=== PATIENT | male | born 1940 | race Asian ===

== ENCOUNTER → 2016-11-01 | Outpatient (CLI) | payer OTHER ==
[~2016-11-01] MED LIST: AMLO10TA55 PO; ASPI-1132 PO; BENA40TA3 PO; EZET1TAB9 PO; FAMO20 PO; GLIM2 PO; ISOS10TA2 PO; METF500T4 PO; NITR0.4T27 SL; OSCAL PO; PANT40SU PO; PANT40TA25 PO; VALS80TA2 PO
== END | disposition home or self-care (01) ==
LOC: RADPV 09:10
PROVIDERS: ATTEND Internal Medicine
DX: I65.23 Occlusion and stenosis of bilateral carotid arteries (principal)
CPT/HCPCS: 93880

== ENCOUNTER 2016-11-08 20:34 | Emergency (ER) | payer OTHER ==
[~2016-11-08] VITALS: Ht 160 cm; Wt 59.0 kg
[2016-11-08 20:53] VITALS: BP 195/92
[2016-11-08] MEDS ORDERED: LEVO75 PO (20:57)
[2016-11-08] MEDS ORDERED: INSULIN SQ (20:57)
[2016-11-08] MEDS ORDERED: AMLO1TAB12 PO (20:57)
[2016-11-08 20:58] LABS: GLUCOSE,POINT OF CARE 103 MG/DL (70-110)
[2016-11-08] MEDS ORDERED: MORPHINE SULFATE 4 MG/ML SYRINGE IM ONE (22:00)
[2016-11-08] MEDS ORDERED: ONDANSETRON HCL 4 MG/2 ML VIAL IM ONE (22:00)
== END 2016-11-08 22:15 | disposition home or self-care (01) ==
LOC: EMS 20:41
DX: S61.432A Puncture wound without foreign body of left hand, initial encounter (principal); E11.9 Type 2 diabetes mellitus without complications; I10 Essential (primary) hypertension; E03.9 Hypothyroidism, unspecified; F17.210 Nicotine dependence, cigarettes, uncomplicated; W56.81XA Bitten by other nonvenomous marine animals, initial encounter; Y93.89 Activity, other specified; Y92.89 Other specified places as the place of occurrence of the external cause; Y99.8 Other external cause status
CPT/HCPCS: 82962; 96372; 99284; J2270; J2405

== ENCOUNTER → 2016-12-04 | Outpatient (CLI) | payer OTHER ==
[~2016-12-04] MED LIST changes: -AMLO10TA55 PO; +AMLO1TAB12 PO; -ASPI-1132 PO; -BENA40TA3 PO; -EZET1TAB9 PO; -FAMO20 PO; -GLIM2 PO; +INSULIN SQ; +LEVO75 PO; -NITR0.4T27 SL; -OSCAL PO; -PANT40SU PO; -PANT40TA25 PO; -VALS80TA2 PO
== END | disposition home or self-care (01) ==
LOC: RADPV 10:12
PROVIDERS: ATTEND Internal Medicine
DX: J42 Unspecified chronic bronchitis (principal); J98.11 Atelectasis
CPT/HCPCS: 71020

== ENCOUNTER 2017-02-27 22:44 | Inpatient (IN) | payer OTHER ==
[~2017-02-27] VITALS: Ht 157.5 cm; Wt 59.1 kg
[2017-02-27 22:57] LABS: GLUCOSE,POINT OF CARE 126 MG/DL (70-110)
[2017-02-27 23:27] LABS: BASOPHILS % (AUTO) 0.2 % (0.0-2.0); EOSINOPHILS % (AUTO) 1.6 % (1.0-6.0); HEMATOCRIT 34.1 % (41-53); HEMOGLOBIN 11.8 g/dL (13.5-17.5); LYMPHOCYTES # (AUTO) 1.7 K/uL (1.0-4.8); LYMPHOCYTES % (AUTO) 22.9 % (22.0-44.0); MEAN CORPUSCULAR HEMOGLOBIN 30.1 pg (26.0-34.0); MEAN CORPUSCULAR HGB CONC 34.5 G/dL (31.0-37.0); MEAN CORPUSCULAR VOLUME 87 fL (80-100); MONOCYTES # (AUTO) 0.6 K/uL (0.1-1.0); MONOCYTES % (AUTO) 8.6 % (2.0-9.0); NEUTROPHILS # (AUTO) 4.9 K/uL (1.8-7.7); NEUTROPHILS % (AUTO) 66.7 % (40.0-70.0); PLATELET COUNT (AUTO) 208 K/uL (150-450); RED BLOOD CELL COUNT(AUTO) 3.92 MIL/uL (4.50-5.90); WHITE BLOOD COUNT (AUTO) 7.3 K/uL (4.5-11.0)
[2017-02-27 23:36] LABS: PROTHROMBIN TIME 10.3 SEC (9.4-11.6)
[2017-02-27 23:42] LABS: ANION GAP 11 mmol/L (8-16); CALCIUM, TOTAL 9.2 mg/dL (8.8-10.5); CARBON DIOXIDE 25 mmol/L (22-29); CHLORIDE 106 mmol/L (98-107); CREATININE 1.71 mg/dL (0.60-1.30); GLOMERULAR FILTR. RATE CALC 39 mL/min (>60); POTASSIUM 3.9 mmol/L (3.5-5.1); SODIUM SERUM 142 mmol/L (136-145); UREA NITROGEN, BLOOD 20 mg/dL (7-18)
[2017-02-27] MEDS ORDERED: ASPIRIN 325 MG TABLET PO ONE (23:45)
[2017-02-27 23:48] LABS: ALANINE AMINOTRANSFERASE 20 U/L (12-78); ALBUMIN 3.6 g/dL (3.4-5.0); ASPARTATE AMINOTRANSFERASE 26 U/L (15-37); BILIRUBIN,TOTAL 0.2 mg/dL (0.1-1.0); TOTAL PROTEIN, SERUM 7.4 g/dL (6.4-8.2)
[2017-02-28] VITALS (7 sets, daily range): BP systolic 118–156; BP diastolic 62–76
[2017-02-28] MEDS ORDERED: ONDANSETRON HCL 4 MG/2 ML VIAL IVP PRN ×2 (00:15→01:45)
[2017-02-28] MEDS ORDERED: POTASSIUM CHL 20 MEQ/0.45% NS 1,000 ML IV ONE (00:15)
[2017-02-28] MEDS ORDERED: 0.9% SODIUM CHLORIDE 10 ML SYRINGE IVP PRN (00:15)
[2017-02-28] MEDS ORDERED: ACETAMINOPHEN 325 MG TABLET PO PRN ×2 (00:15→01:45)
[2017-02-28 00:43] LABS: B-TYPE NATRIURETIC PEPTIDE 43 pg/mL (0-100)
[2017-02-28] MEDS ORDERED: ALBUTEROL SULFATE 2.5 MG/0.5 ML NEB SOLUTION NEB PRN (01:45)
[2017-02-28] MEDS ORDERED: POTASSIUM CHL 10 MEQ/WATER 50 ML IV PRN (01:45)
[2017-02-28] MEDS ORDERED: IPRATROPIUM BROMIDE 0.5 MG/2.5 ML NEB SOLUTION NEB PRN (01:45)
[2017-02-28] MEDS ORDERED: ZOLPIDEM TARTRATE 5 MG TABLET PO PRN (01:45)
[2017-02-28] MEDS ORDERED: MAGNESIUM SULFATE 4 GM/WATER 100 ML IV PRN (01:45)
[2017-02-28] MEDS ORDERED: BISACODYL 10 MG RECTAL RECTAL SUPPOSITORY PR PRN (01:45)
[2017-02-28] MEDS ORDERED: POTASSIUM CHLORIDE 20 MEQ ER TABLET PO PRN ×2 (01:45)
[2017-02-28] MEDS ORDERED: MAGNESIUM HYDROXIDE SUSPENSION 30 ML UDCUP PO PRN (01:45)
[2017-02-28] MEDS ORDERED: MAGNESIUM SULFATE 2 GM in DEXTROSE 5%-WATER 50 ML IV PRN (01:45)
[2017-02-28] MEDS ORDERED: MORPHINE SULFATE 2 MG/ML SYRINGE IVP PRN (01:45)
[2017-02-28] MEDS ORDERED: MAGNESIUM OXIDE 400 MG TABLET PO PRN (01:45)
[2017-02-28] MEDS ORDERED: DEXTROSE 50%-WATER 25 GM/50 ML SYRINGE IVP PRN (01:45)
[2017-02-28] MEDS ORDERED: OxyCODONE HCL/ACETAMINOPHEN 5-325 MG TABLET PO PRN (01:45)
[2017-02-28 05:28] LABS: APPEARANCE,URINE CLEAR (CLEAR); GLUCOSE, URINE (UA) NEGATIVE (NEGATIVE); KETONES,URINE NEGATIVE (NEGATIVE); LEUKOCYTE ESTERASE ,URINE NEGATIVE (NEGATIVE); OCCULT BLOOD,URINE NEGATIVE (NEGATIVE); PH,URINE 5.5 (5.0-8.0); PROTEIN,URINE POS 1+ (NEGATIVE)
[2017-02-28 05:59] LABS: RBC,URINE 0-2 /HPF (0-2); SQUAMOUS EPITHELIAL CELL,UR Few /LPF (None Seen); WBC,URINE 0-2 /HPF (0-5)
[2017-02-28] MEDS: LEVOTHYROXINE SODIUM 75 MCG TABLET PO SCH (06:18)
[2017-02-28] MEDS ORDERED: MetFORMIN HCL 500 MG TABLET PO SCH (06:30)
[2017-02-28 07:32] LABS: GLUCOSE,POINT OF CARE 83 MG/DL (70-110)
[2017-02-28] MEDS: HEPARIN SODIUM,PORCINE 5,000 UNITS/ML VIAL SQ SCH ×2 (08:38→20:22)
[2017-02-28] MEDS: PANTOPRAZOLE SODIUM 40 MG/VIAL IVP SCH (08:38)
[2017-02-28] MEDS: VALSARTAN 160 MG TABLET PO SCH (08:38)
[2017-02-28] MEDS: NICOTINE 21 MG/24 HOUR PATCH TD SCH (08:39)
[2017-02-28] MEDS: ASPIRIN 81 MG EC TABLET PO SCH (08:39)
[2017-02-28] MEDS: AmLODIPine BESYLATE 5 MG TABLET PO SCH (12:07)
[2017-02-28 16:37] LABS: GLUCOSE,POINT OF CARE 99 MG/DL (70-110)
[2017-02-28] MEDS: INSULIN ASPART 100 UNITS/ML SQ PRN (20:30)
[2017-03-01 05:16] VITALS: BP 157/72
[2017-03-01] MEDS: LEVOTHYROXINE SODIUM 75 MCG TABLET PO SCH (05:42)
[2017-03-01 06:22] LABS: GLUCOSE COMMENT 1 Received Meds; GLUCOSE,POINT OF CARE 152 MG/DL (70-110)
[2017-03-01 06:58] LABS: BASOPHILS % (AUTO) 0.1 % (0.0-2.0); EOSINOPHILS % (AUTO) 1.24 % (1.0-6.0); HEMATOCRIT 35.8 % (41-53); HEMOGLOBIN 12.6 g/dL (13.5-17.5); LYMPHOCYTES # (AUTO) 1.1 K/uL (1.0-4.8); LYMPHOCYTES % (AUTO) 13.8 % (22.0-44.0); MEAN CORPUSCULAR HEMOGLOBIN 29.8 pg (26.0-34.0); MEAN CORPUSCULAR HGB CONC 35.2 G/dL (31.0-37.0); MEAN CORPUSCULAR VOLUME 85 fL (80-100); MONOCYTES # (AUTO) 0.5 K/uL (0.1-1.0); MONOCYTES % (AUTO) 7.1 % (2.0-9.0); NEUTROPHILS % (AUTO) 77.8 % (40.0-70.0); PLATELET COUNT (AUTO) 203 K/uL (150-450); RED BLOOD CELL COUNT(AUTO) 4.23 MIL/uL (4.50-5.90); RED CELL DISTRIBUTION WIDTH 13.5 % (11.5-14.5); WHITE BLOOD COUNT (AUTO) 7.7 K/uL (4.5-11.0)
[2017-03-01 07:06] VITALS: BP 149/68
[2017-03-01 07:09] LABS: PROTHROMBIN TIME 10.7 SEC (9.4-11.6)
[2017-03-01 07:33] LABS: ALBUMIN 3.4 g/dL (3.4-5.0); BILIRUBIN,TOTAL 0.3 mg/dL (0.1-1.0); CREATININE 1.21 mg/dL (0.60-1.30); MAGNESIUM 1.4 mg/dL (1.80-2.40); PHOSPHORUS 3.8 mg/dL (2.5-4.9); TOTAL PROTEIN, SERUM 7.2 g/dL (6.4-8.2)
[2017-03-01] MEDS: PANTOPRAZOLE SODIUM 40 MG/VIAL IVP SCH (08:19)
[2017-03-01] MEDS: VALSARTAN 160 MG TABLET PO SCH (08:20)
[2017-03-01] MEDS: HEPARIN SODIUM,PORCINE 5,000 UNITS/ML VIAL SQ SCH ×2 (08:20→21:10)
[2017-03-01] MEDS: ASPIRIN 81 MG EC TABLET PO SCH (08:20)
[2017-03-01] MEDS: AmLODIPine BESYLATE 5 MG TABLET PO SCH (08:20)
[2017-03-01] MEDS: NICOTINE 21 MG/24 HOUR PATCH TD SCH (08:22)
[2017-03-01 11:52] LABS: GLUCOSE COMMENT 1 Received Meds; GLUCOSE,POINT OF CARE 202 MG/DL (70-110)
[2017-03-01 11:52] LABS: GLUCOSE,POINT OF CARE 114 MG/DL (70-110)
[2017-03-01 11:58] VITALS: BP 155/65
[2017-03-01] MEDS: INSULIN ASPART 100 UNITS/ML SQ PRN ×3 (11:58→21:12)
[2017-03-01 15:22] VITALS: BP 160/70
[2017-03-01 19:17] VITALS: BP 149/77
[2017-03-01 20:02] LABS: GLUCOSE COMMENT 1 Received Meds; GLUCOSE,POINT OF CARE 159 MG/DL (70-110)
[2017-03-01 20:02] LABS: GLUCOSE COMMENT 1 Received Meds; GLUCOSE,POINT OF CARE 248 MG/DL (70-110)
[2017-03-01 21:02] LABS: GLUCOSE,POINT OF CARE 232 MG/DL (70-110)
[2017-03-02] VITALS: BP 151/75
[2017-03-02 04:40] VITALS: BP 146/88
[2017-03-02 07:24] LABS: CHOL/HDL RATIO 3.4 (4.2-7.3); MAGNESIUM 1.9 mg/dL (1.80-2.40); THYROID STIMULATING HORMONE 5.69 uIU/mL (0.36-3.74)
[2017-03-02] MEDS: LEVOTHYROXINE SODIUM 75 MCG TABLET PO SCH (07:41)
[2017-03-02 07:45] VITALS: BP 158/77
[2017-03-02] MEDS: NICOTINE 21 MG/24 HOUR PATCH TD SCH (08:29)
[2017-03-02] MEDS: HEPARIN SODIUM,PORCINE 5,000 UNITS/ML VIAL SQ SCH (08:31)
[2017-03-02] MEDS: AmLODIPine BESYLATE 5 MG TABLET PO SCH (08:31)
[2017-03-02] MEDS: ASPIRIN 81 MG EC TABLET PO SCH (08:31)
[2017-03-02] MEDS: VALSARTAN 160 MG TABLET PO SCH (08:31)
[2017-03-02 12:00] VITALS: BP 153/87
[2017-03-02] MEDS: INSULIN ASPART 100 UNITS/ML SQ PRN (12:38)
[2017-03-02] MEDS: PANTOPRAZOLE SODIUM 40 MG/VIAL IVP SCH (13:39)
[2017-03-02] MEDS ORDERED: ASPI-1182 PO (13:45)
[2017-03-02] MEDS ORDERED: ATOR10TA84 PO (13:46)
[2017-03-02] MEDS ORDERED: NICO-802 TD (13:47)
[2017-03-03 08:57] LABS: GLUCOSE COMMENT 1 Received Meds; GLUCOSE,POINT OF CARE 174 MG/DL (70-110)
[2017-03-03 08:57] LABS: GLUCOSE COMMENT 1 Received Meds; GLUCOSE,POINT OF CARE 159 MG/DL (70-110)
== END 2017-03-02 14:20 | disposition home or self-care (01) | DRG 65 ==
LOC: EMS 22:46 → 5S 02-28 00:13
PROVIDERS: ADMIT Internal Medicine; ATTEND Internal Medicine
DX: I63.9 Cerebral infarction, unspecified (principal); N17.9 Acute kidney failure, unspecified; J44.9 Chronic obstructive pulmonary disease, unspecified; E11.9 Type 2 diabetes mellitus without complications; G81.91 Hemiplegia, unspecified affecting right dominant side; E03.9 Hypothyroidism, unspecified; I10 Essential (primary) hypertension; F17.200 Nicotine dependence, unspecified, uncomplicated
CPT/HCPCS: 70450; 70544; 70551; 82607; 82746; 82962; 83036; 83735; 84100; 84443; 92507; 92523; 93005; 93306; 93880; 97110; 97112; 97116; 97162; 97166; 97530; 97535; 99291; C9113; G0480; J1644; J3475; J3480; J7060

== ENCOUNTER 2017-03-05 18:12 | Inpatient (IN) | payer OTHER ==
[~2017-03-05] VITALS: Ht 165.1 cm; Wt 62.0 kg
[~2017-03-05 18:12] MED LIST changes: +ASPI-1182 PO; +ATOR10TA84 PO; +NICO-802 TD
[2017-03-05] MEDS ORDERED: HYDR10TA31 PO (18:20)
[2017-03-05] MEDS ORDERED: TEMO15C TP (18:20)
[2017-03-05] MEDS ORDERED: LINA5TAB PO (18:20)
[2017-03-05] MEDS ORDERED: DSS100 PO (18:20)
[2017-03-05] MEDS ORDERED: PANT40TA25 PO (18:20)
[2017-03-05] MEDS ORDERED: GLIP5 PO (18:20)
[2017-03-05 18:29] LABS: BASOPHILS % (AUTO) 0.4 % (0.0-2.0); HEMATOCRIT 36.7 % (41-53); HEMOGLOBIN 12.7 g/dL (13.5-17.5); LYMPHOCYTES # (AUTO) 1.8 K/uL (1.0-4.8); LYMPHOCYTES % (AUTO) 21.5 % (22.0-44.0); MEAN CORPUSCULAR HEMOGLOBIN 30.4 pg (26.0-34.0); MEAN CORPUSCULAR HGB CONC 34.6 G/dL (31.0-37.0); MEAN CORPUSCULAR VOLUME 88 fL (80-100); MONOCYTES # (AUTO) 0.7 K/uL (0.1-1.0); MONOCYTES % (AUTO) 8.5 % (2.0-9.0); NEUTROPHILS # (AUTO) 5.7 K/uL (1.8-7.7); NEUTROPHILS % (AUTO) 68.6 % (40.0-70.0); PLATELET COUNT (AUTO) 234 K/uL (150-450); RED BLOOD CELL COUNT(AUTO) 4.19 MIL/uL (4.50-5.90); RED CELL DISTRIBUTION WIDTH 13.7 % (11.5-14.5); WHITE BLOOD COUNT (AUTO) 8.3 K/uL (4.5-11.0)
[2017-03-05 18:31] LABS: ANION GAP 9 mmol/L (8-16); CALCIUM, TOTAL 9.5 mg/dL (8.8-10.5); CARBON DIOXIDE 28 mmol/L (22-29); CHLORIDE 103 mmol/L (98-107); CREATININE 1.94 mg/dL (0.60-1.30); GLOMERULAR FILTR. RATE CALC 34 mL/min (>60); POTASSIUM 4.9 mmol/L (3.5-5.1); SODIUM SERUM 140 mmol/L (136-145); UREA NITROGEN, BLOOD 36 mg/dL (7-18)
[2017-03-05] MEDS ORDERED: IOVERSOL 350 MG/ML 100 ML VIAL ONE (18:31)
[2017-03-05] MEDS ORDERED: SODIUM CHLORIDE 0.9% 100 ML ONE (18:31)
[2017-03-05 18:37] LABS: INR 0.9 (0.9-1.1)
[2017-03-05 18:57] LABS: ALANINE AMINOTRANSFERASE 73 U/L (12-78); ALBUMIN 3.8 g/dL (3.4-5.0); ASPARTATE AMINOTRANSFERASE 34 U/L (15-37); BILIRUBIN,TOTAL 0.2 mg/dL (0.1-1.0); CREATINE KINASE, TOTAL 82 U/L (39-308); TOTAL PROTEIN, SERUM 7.7 g/dL (6.4-8.2)
[2017-03-05] MEDS ORDERED: AMLO-352 PO (19:24)
[2017-03-05] MEDS ORDERED: CALC-719 PO (19:24)
[2017-03-05] MEDS ORDERED: ASPIRIN 325 MG TABLET PO ONE (19:45)
[2017-03-05] MEDS ORDERED: ACETAMINOPHEN 325 MG TABLET PO PRN (20:00)
[2017-03-05] MEDS ORDERED: SODIUM CHLORIDE 0.9% 1,000 ML IV ONE (20:00)
[2017-03-05] MEDS ORDERED: ONDANSETRON HCL 4 MG/2 ML VIAL IVP PRN (20:00)
[2017-03-05] MEDS ORDERED: 0.9% SODIUM CHLORIDE 10 ML SYRINGE IVP PRN ×2 (20:00→22:15)
[2017-03-05 20:54] LABS: APPEARANCE,URINE CLEAR (CLEAR); GLUCOSE, URINE (UA) NEGATIVE (NEGATIVE); KETONES,URINE NEGATIVE (NEGATIVE); LEUKOCYTE ESTERASE ,URINE NEGATIVE (NEGATIVE); OCCULT BLOOD,URINE TRACE (NEGATIVE); PH,URINE 5.5 (5.0-8.0); PROTEIN,URINE POS 1+ (NEGATIVE)
[2017-03-05 20:57] LABS: ADD UA MICROSCOPIC YES
[2017-03-05 21:12] LABS: WBC,URINE 0-2 /HPF (0-5)
[2017-03-05] MEDS ORDERED: DEXTROSE 50%-WATER 25 GM/50 ML SYRINGE IVP PRN (22:15)
[2017-03-05] MEDS: AmLODIPine BESYLATE 10 MG TABLET PO SCH (22:43)
[2017-03-06] VITALS (8 sets, daily range): BP systolic 107–162; BP diastolic 57–74
[2017-03-06] MEDS: HYDROCHLOROTHIAZIDE 25 MG TABLET PO SCH ×2 (00:04→19:58)
[2017-03-06 00:17] LABS: GLUCOSE,POINT OF CARE 117 MG/DL (70-110)
[2017-03-06] MEDS: VALSARTAN 160 MG TABLET PO SCH ×2 (02:29→19:58)
[2017-03-06] MEDS ORDERED: SODIUM CHLORIDE 0.9% 250 ML IV ONE (03:39)
[2017-03-06 05:19] LABS: BASOPHILS % (AUTO) 0.4 % (0.0-2.0); EOSINOPHILS % (AUTO) 1.4 % (1.0-6.0); HEMATOCRIT 33.7 % (41-53); HEMOGLOBIN 11.5 g/dL (13.5-17.5); LYMPHOCYTES # (AUTO) 1.6 K/uL (1.0-4.8); LYMPHOCYTES % (AUTO) 26.4 % (22.0-44.0); MEAN CORPUSCULAR HEMOGLOBIN 30.3 pg (26.0-34.0); MEAN CORPUSCULAR HGB CONC 34.2 G/dL (31.0-37.0); MEAN CORPUSCULAR VOLUME 89 fL (80-100); MONOCYTES # (AUTO) 0.6 K/uL (0.1-1.0); MONOCYTES % (AUTO) 9.5 % (2.0-9.0); NEUTROPHILS # (AUTO) 3.9 K/uL (1.8-7.7); NEUTROPHILS % (AUTO) 62.3 % (40.0-70.0); PLATELET COUNT (AUTO) 205 K/uL (150-450); RED BLOOD CELL COUNT(AUTO) 3.81 MIL/uL (4.50-5.90); RED CELL DISTRIBUTION WIDTH 13.7 % (11.5-14.5); WHITE BLOOD COUNT (AUTO) 6.2 K/uL (4.5-11.0)
[2017-03-06 05:31] LABS: CALCIUM, TOTAL 8.5 mg/dL (8.8-10.5); CREATININE 1.56 mg/dL (0.60-1.30); MAGNESIUM 1.9 mg/dL (1.80-2.40); POTASSIUM 4.2 mmol/L (3.5-5.1)
[2017-03-06 06:16] LABS: HEMOGLOBIN A1C 7.3 % (4.5-6.2)
[2017-03-06 08:02] LABS: GLUCOSE,POINT OF CARE 126 MG/DL (70-110)
[2017-03-06] MEDS: MetFORMIN HCL 500 MG TABLET PO SCH ×2 (09:37→18:21)
[2017-03-06] MEDS: ASPIRIN 81 MG EC TABLET PO SCH (09:37)
[2017-03-06] MEDS: HydrALAZINE HCL 10 MG TABLET PO SCH (09:37)
[2017-03-06] MEDS: CLOBETASOL 0.05% 15 GM CREAM TP SCH (09:38)
[2017-03-06] MEDS: ATORVASTATIN CALCIUM 40 MG TABLET PO SCH (09:38)
[2017-03-06] MEDS: CALCIUM OYSTER SHELL 500 MG TABLET PO SCH (09:38)
[2017-03-06] MEDS: ISOSORBIDE MONONITRATE 30 MG ER TABLET PO SCH (09:38)
[2017-03-06] MEDS: PANTOPRAZOLE SODIUM 40 MG DR TABLET PO SCH (09:39)
[2017-03-06] MEDS: NICOTINE 21 MG/24 HOUR PATCH TD SCH (11:33)
[2017-03-06] MEDS: INSULIN ASPART 100 UNITS/ML SQ PRN (11:43)
[2017-03-06 14:13] LABS: GLUCOSE,POINT OF CARE 198 MG/DL (70-110)
[2017-03-06] MEDS ORDERED: ACETAMINOPHEN 325 MG TABLET PO PRN (17:00)
[2017-03-06] MEDS: AmLODIPine BESYLATE 10 MG TABLET PO SCH (19:58)
[2017-03-06] MEDS ORDERED: [UNRECOGNIZED DRUG - OTHER] PO SCH (21:00)
[2017-03-07 04:34] VITALS: BP 153/73
[2017-03-07 06:38] LABS: BASOPHILS % (AUTO) 0.4 % (0.0-2.0); EOSINOPHILS % (AUTO) 1.5 % (1.0-6.0); HEMATOCRIT 32.8 % (41-53); HEMOGLOBIN 11.3 g/dL (13.5-17.5); LYMPHOCYTES # (AUTO) 1.6 K/uL (1.0-4.8); LYMPHOCYTES % (AUTO) 22.1 % (22.0-44.0); MEAN CORPUSCULAR HEMOGLOBIN 30.3 pg (26.0-34.0); MEAN CORPUSCULAR HGB CONC 34.3 G/dL (31.0-37.0); MEAN CORPUSCULAR VOLUME 88 fL (80-100); MONOCYTES # (AUTO) 0.6 K/uL (0.1-1.0); MONOCYTES % (AUTO) 7.9 % (2.0-9.0); NEUTROPHILS % (AUTO) 68.1 % (40.0-70.0); PLATELET COUNT (AUTO) 200 K/uL (150-450); RED BLOOD CELL COUNT(AUTO) 3.72 MIL/uL (4.50-5.90); RED CELL DISTRIBUTION WIDTH 13.5 % (11.5-14.5); WHITE BLOOD COUNT (AUTO) 7.4 K/uL (4.5-11.0)
[2017-03-07 06:48] LABS: GLUCOSE,POINT OF CARE 130 MG/DL (70-110)
[2017-03-07 06:48] LABS: GLUCOSE,POINT OF CARE 127 MG/DL (70-110)
[2017-03-07 06:56] LABS: CALCIUM, TOTAL 8.9 mg/dL (8.8-10.5); CREATININE 1.71 mg/dL (0.60-1.30); MAGNESIUM 1.8 mg/dL (1.80-2.40); POTASSIUM 4.4 mmol/L (3.5-5.1)
[2017-03-07 07:12] VITALS: BP 172/79
[2017-03-07] MEDS: HydrALAZINE HCL 10 MG TABLET PO SCH (08:32)
[2017-03-07] MEDS: PANTOPRAZOLE SODIUM 40 MG DR TABLET PO SCH (08:32)
[2017-03-07] MEDS: ASPIRIN 81 MG EC TABLET PO SCH (08:33)
[2017-03-07] MEDS: CALCIUM OYSTER SHELL 500 MG TABLET PO SCH (08:33)
[2017-03-07] MEDS: ATORVASTATIN CALCIUM 40 MG TABLET PO SCH (08:33)
[2017-03-07] MEDS: NICOTINE 21 MG/24 HOUR PATCH TD SCH (08:33)
[2017-03-07] MEDS: MetFORMIN HCL 500 MG TABLET PO SCH (08:33)
[2017-03-07] MEDS: ISOSORBIDE MONONITRATE 30 MG ER TABLET PO SCH (08:33)
[2017-03-07] MEDS: CLOBETASOL 0.05% 15 GM CREAM TP SCH (08:43)
[2017-03-07 11:35] VITALS: BP 144/74
[2017-03-07] MEDS: INSULIN ASPART 100 UNITS/ML SQ PRN (11:43)
[2017-03-07 12:32] LABS: GLUCOSE,POINT OF CARE 125 MG/DL (70-110)
[2017-03-07 12:33] LABS: GLUCOSE,POINT OF CARE 122 MG/DL (70-110)
[2017-03-07] MEDS ORDERED: NICO1PAT40 TD (14:05)
[2017-03-07 15:32] VITALS: BP 137/70
[2017-07-05] MEDS ORDERED: ACET-784 PO (10:28)
[2017-07-06] MEDS ORDERED: ASPI-989 PO (15:38)
[2017-07-06] MEDS ORDERED: ATOR40TA28 PO (15:38)
[2017-07-06] MEDS ORDERED: ISOS30TA6 PO (15:39)
== END 2017-03-07 17:00 | disposition home or self-care (01) | DRG 64 ==
LOC: EMS 18:15 → ICU 19:39 → 5S 03-06 16:35
PROVIDERS: ADMIT Family Medicine; ATTEND Family Medicine
DX: I63.9 Cerebral infarction, unspecified (principal); N17.0 Acute kidney failure with tubular necrosis; E11.9 Type 2 diabetes mellitus without complications; I10 Essential (primary) hypertension; E03.9 Hypothyroidism, unspecified; E78.5 Hyperlipidemia, unspecified; F17.210 Nicotine dependence, cigarettes, uncomplicated; H26.9 Unspecified cataract; M10.9 Gout, unspecified; Z79.82 Long term (current) use of aspirin; Z86.73 Personal history of transient ischemic attack (TIA), and cerebral infarction without residual deficits; I16.0 Hypertensive urgency
CPT/HCPCS: 70496; 70551; 82962; 83036; 83735; 87081; 92526; 92610; 93005; 96360; 97110; 97116; 97162; 97167; 97530; 97535; 99291; J7050

== ENCOUNTER 2017-05-17 01:11 | Emergency (ER) | payer OTHER ==
[~2017-05-17] VITALS: Ht 157.5 cm; Wt 59.1 kg
[~2017-05-17 01:11] MED LIST changes: +AMLO-352 PO; -AMLO1TAB12 PO; +CALC-719 PO; +DSS100 PO; +GLIP5 PO; +HYDR10TA31 PO; -LEVO75 PO; +LINA5TAB PO; -NICO-802 TD; +NICO1PAT40 TD; +PANT40TA25 PO; +TEMO15C TP
[2017-05-17] MEDS ORDERED: KETOROLAC TROMETHAMINE 60 MG/2 ML VIAL IM ONE (02:15)
[2017-05-17] MEDS ORDERED: METOCLOPRAMIDE HCL 5 MG/ML 2 ML VIAL IM ONE (02:15)
[2017-05-17 03:18] VITALS: BP 141/78
[2017-07-05] MEDS ORDERED: ACET-784 PO (10:28)
[2017-07-06] MEDS ORDERED: ATOR40TA28 PO (15:38)
[2017-07-06] MEDS ORDERED: ASPI-989 PO (15:38)
[2017-07-06] MEDS ORDERED: ISOS30TA6 PO (15:39)
== END 2017-05-17 04:09 | disposition home or self-care (01) ==
LOC: EMS 01:12
DX: R51 Headache (principal); E03.9 Hypothyroidism, unspecified; E11.9 Type 2 diabetes mellitus without complications; I10 Essential (primary) hypertension; M10.9 Gout, unspecified; F17.210 Nicotine dependence, cigarettes, uncomplicated; Z79.4 Long term (current) use of insulin; Z79.82 Long term (current) use of aspirin; Z86.73 Personal history of transient ischemic attack (TIA), and cerebral infarction without residual deficits
CPT/HCPCS: 70450; 96372; 99284; J1885; J2765

== ENCOUNTER 2017-07-23 08:08 | Day surgery (SDC) | payer MEDICARE, OTHER ==
[~2017-07-23] VITALS: Ht 157.5 cm; Wt 59.1 kg
[~2017-07-23 08:08] MED LIST changes: +ACET-784 PO; -ASPI-1182 PO; +ASPI-989 PO; -ATOR10TA84 PO; +ATOR40TA28 PO; -ISOS10TA2 PO; +ISOS30TA6 PO; -NICO1PAT40 TD; +SODIUM CHLORIDE 0.9% 1,000 ML IV ONE
[2017-07-23 08:26] LABS: BASOPHILS % (AUTO) 0.5 % (0.0-2.0); EOSINOPHILS % (AUTO) 1.2 % (1.0-6.0); HEMATOCRIT 35.2 % (41-53); LYMPHOCYTES # (AUTO) 1.4 K/uL (1.0-4.8); LYMPHOCYTES % (AUTO) 17.7 % (22.0-44.0); MEAN CORPUSCULAR HGB CONC 34.2 G/dL (31.0-37.0); MEAN CORPUSCULAR VOLUME 88 fL (80-100); MONOCYTES # (AUTO) 0.7 K/uL (0.1-1.0); MONOCYTES % (AUTO) 8.4 % (2.0-9.0); NEUTROPHILS # (AUTO) 5.7 K/uL (1.8-7.7); NEUTROPHILS % (AUTO) 72.2 % (40.0-70.0); PLATELET COUNT (AUTO) 211 K/uL (150-450); RED BLOOD CELL COUNT(AUTO) 4.01 MIL/uL (4.50-5.90); RED CELL DISTRIBUTION WIDTH 13.1 % (11.5-14.5)
[2017-07-23 08:35] LABS: CALCIUM, TOTAL 9.2 mg/dL (8.8-10.5); CREATININE 1.79 mg/dL (0.60-1.30); POTASSIUM 5.6 mmol/L (3.5-5.1)
[2017-07-23 08:36] LABS: INR 0.9 (0.9-1.1); PROTHROMBIN TIME 9.7 SEC (9.4-11.6)
[2017-07-23] MEDS ORDERED: CLOP75 PO (08:36)
[2017-07-23] MEDS ORDERED: BENZOCAINE 20% 50 MCG/SPRAY 57 GM ONE (08:56)
[2017-07-23 09:05] VITALS: BP 154/74
[2017-07-23] MEDS ORDERED: FentaNYL CITRATE-PF 100 MCG/2 ML VIAL ONE (09:26)
[2017-07-23] MEDS ORDERED: MIDAZOLAM HCL 2 MG/2 ML VIAL ONE (09:26)
[2017-07-23 09:45] VITALS: BP 127/63
[2017-07-23] MEDS ORDERED: FentaNYL CITRATE-PF 100 MCG/2 ML VIAL IVP ONE (09:45)
[2017-07-23] MEDS ORDERED: BENZOCAINE 20% 50 MCG/SPRAY 57 GM TP ONE (09:45)
[2017-07-23] MEDS ORDERED: MIDAZOLAM HCL 2 MG/2 ML VIAL IVP ONE (09:45)
== END 2017-07-23 12:25 | disposition home or self-care (01) ==
LOC: CATHLAB 08:08
PROVIDERS: ATTEND Internal Medicine Cardiovascular Disease
DX: I34.0 Nonrheumatic mitral (valve) insufficiency (principal); E11.9 Type 2 diabetes mellitus without complications; I10 Essential (primary) hypertension; E78.5 Hyperlipidemia, unspecified; E03.9 Hypothyroidism, unspecified; Z79.4 Long term (current) use of insulin; Z79.01 Long term (current) use of anticoagulants; Z79.899 Other long term (current) drug therapy; Z72.89 Other problems related to lifestyle
CPT/HCPCS: 36415; 80048; 85025; 85610; 85730; 93312; 99152; 99153; J2250; J3010; J7030

== ENCOUNTER → 2018-10-16 | Outpatient (CLI) | payer MEDICARE, MEDICAID ==
[~2018-10-16] MED LIST changes: -AMLO-352 PO; +AMLO-360 PO; -ASPI-989 PO; +CLOP75TA3 PO; +METF-960 PO; -METF500T4 PO; -SODIUM CHLORIDE 0.9% 1,000 ML IV ONE
== END | disposition home or self-care (01) ==
LOC: RADPV 10:16
PROVIDERS: ATTEND Internal Medicine Nephrology
DX: N28.1 Cyst of kidney, acquired (principal)
CPT/HCPCS: 76770

== ENCOUNTER → 2021-09-09 | Outpatient (CLI) | payer MEDICARE, MEDICAID ==
[~2021-09-09] MED LIST changes: -AMLO-360 PO; +AMLO-430 PO; +CLOB15CR10 TP; -CLOP75TA3 PO; +CLOP75TA60 PO; -ISOS30TA6 PO; +ISOS30TA92 PO; +METF-1211 PO; -METF-960 PO; +PANT-31 PO; -PANT40TA25 PO; +SODIUM CHLORIDE 0.9% 1,000 ML ONE; +SODIUM CHLORIDE 0.9% 500 ML IV ONE; -TEMO15C TP
== END | disposition home or self-care (01) ==
LOC: RADPV 11:37
PROVIDERS: ATTEND Podiatrist Foot & Ankle Surgery
DX: I73.9 Peripheral vascular disease, unspecified (principal); M79.673 Pain in unspecified foot
CPT/HCPCS: 93925; J7030; J7040

== ENCOUNTER 2024-05-08 18:57 | Emergency (ER) | payer SELFPAY ==
[~2024-05-08] VITALS: Ht 154.9 cm; Wt 54.8 kg
[~2024-05-08 18:57] MED LIST changes: -GLIP5 PO; +GLIP5TAB16 PO; -SODIUM CHLORIDE 0.9% 1,000 ML ONE; -SODIUM CHLORIDE 0.9% 500 ML IV ONE
[2024-05-08 19:00] VITALS: TEMP 101
[2024-05-08 19:06] VITALS: BP 197/87; PULSE 107; RESP 20; O2SAT 98
[2024-05-08] MEDS ORDERED: CefTRIAXone 1 GM/DEXTROSE 50 ML IV ONE (19:15)
[2024-05-08] MEDS ORDERED: SODIUM CHLORIDE 0.9% 1,600 ML IV ONE (19:15)
[2024-05-08] MEDS ORDERED: 0.9% SODIUM CHLORIDE 10 ML SYRINGE IVP PRN (19:15)
[2024-05-08] MEDS ORDERED: ATOR20TA65 PO (19:56)
[2024-05-08] MEDS ORDERED: FURO40TA5 PO (19:56)
[2024-05-08] MEDS ORDERED: INSU100I24 SQ (19:56)
[2024-05-08] MEDS ORDERED: FLUT16SP NASAL (19:56)
[2024-05-08] MEDS ORDERED: HYDR25TA84 PO (19:56)
[2024-05-08] MEDS ORDERED: DOCU100C33 PO (19:56)
[2024-05-08] MEDS ORDERED: PANT40TA54 PO (19:56)
[2024-05-08] MEDS ORDERED: METO25 PO (19:56)
[2024-05-08] MEDS ORDERED: GABA-529 PO (19:56)
[2024-05-08] MEDS ORDERED: ASPI-1444 PO (19:56)
[2024-05-08] MEDS ORDERED: VALS160T31 PO (19:56)
[2024-05-08] MEDS ORDERED: SEMA2PEN SQ (19:56)
[2024-05-08] MEDS ORDERED: DAPA5TAB PO (19:56)
[2024-05-08] MEDS ORDERED: EZET10TA57 PO (19:56)
[2024-05-08] MEDS ORDERED: INSU100I32 SQ (19:56)
[2024-05-08] MEDS ORDERED: OS500 PO (19:56)
[2024-05-08] MEDS ORDERED: BETA15OI30 TP (19:56)
[2024-05-08] MEDS ORDERED: LEVO75 PO ×2 (19:56)
[2024-05-08] MEDS ORDERED: POTASSIUM CHL 10 MEQ/WATER 50 ML IV ONE (21:14)
[2024-05-12] MEDS ORDERED: LEVO-72 PO (10:44)
== END 2024-05-08 22:05 | disposition home or self-care (01) ==
LOC: EDBD → MERGE 18:58 → EMS 18:58
DX: I10 Essential (primary) hypertension (principal)
CPT/HCPCS: 99283; 93005; J0696; J3480; J7030